=== PATIENT | male | born 1995 | race Caucasian/White ===

== ENCOUNTER 2023-10-21 20:35 | Emergency (ER) | payer OTHER ==
[~2023-10-21] VITALS: Ht 172.7 cm; Wt 79.5 kg
[2023-10-21 21:03] VITALS: TEMP 98.2
[2023-10-21] MEDS: CEPHALEXIN MONOHYDRATE 500 MG CAPSULE PO ONE (23:09)
[2023-10-21] MEDS: DiphenhydrAMINE HCL 25 MG CAPSULE PO ONE (23:09)
[2023-10-21] MEDS ORDERED: CEPH-558 PO (23:11)
[2023-10-21] MEDS ORDERED: DIPH-1243 PO (23:11)
[2023-10-21 23:18] VITALS: BP 139/64; PULSE 72; RESP 18
== END 2023-10-21 23:20 | disposition home or self-care (01) ==
LOC: EMS 20:35
DX: L03.211 Cellulitis of face (principal); F17.210 Nicotine dependence, cigarettes, uncomplicated; F12.90 Cannabis use, unspecified, uncomplicated; F15.90 Other stimulant use, unspecified, uncomplicated; F10.90 Alcohol use, unspecified, uncomplicated; Y90.9 Presence of alcohol in blood, level not specified
CPT/HCPCS: 99283